=== PATIENT | female | born 1950 | race Caucasian/White ===

== ENCOUNTER 2019-03-16 17:30 | Outpatient (REF) | payer MEDICARE, BC, SELFPAY ==
--- NOTE | 2019-03-16 16:25 | TONG_PTH ---
PATIENT: BO GANDARA LOC: [facility] U#:[id number] AGE/SX: 68/F ROOM: RE03/16/[address]: Rogers Marrufo DO : 1950 BED: DIS: 03/16/2019 SPEC #: [id number] RECD: 03/16/19 18:25 STATUS: ISABEL REQ #: [id number] NANCY: 03/16/19 16:[address]: Rogers Marrufo DEPT: Surgical Specimen RECD BY: Palmira Bernstein ENTERED: 03/16/19 18:26 SP TYPE: JOHNNY BURNETT DR: Kaitlin Hurtado Tissues: 1 - TONGUE BIOPSY Procedures: GROSS AND MICRO LEVEL 4 SPECIAL STAIN 1 Comments: [id number] (STAT READ*)
--- NOTE | 2019-03-16 16:25 | PAPNONF_PTH ---
PATIENT: BO GANDARA LOC: [facility] U#:[id number] AGE/SX: 68/F ROOM: RE03/16/[address]: Rogers Marrufo DO : 1950 BED: DIS: 03/16/2019 SPEC #: [id number] RECD: 03/16/19 18:36 STATUS: ISABEL REQ #: [id number] NANCY: 03/16/19 16:[address]: Rogers Marrufo DEPT: [facility] Cytology RECD BY: Palmira Bernstein ENTERED: 03/16/19 18:38 SP TYPE: NANO BURNETT DR: Kaitlin Hurtado Tissues: 1 - BODY FLUID CYTO-FINE NEEDLE ASPIRATE-[facility] Procedures: BODY FLUID CYTO-FINE NEEDLE ASPIRATE-[facility] Comments: [id number] (*STAT READ*)
== END 2019-03-16 17:50 ==
LOC: LBN 17:30
PROVIDERS: PCP Nurse Practitioner Family; Visit Provider Otolaryngology Otolaryngology/Facial Plastic Surgery
DX: K14.0 Glossitis (principal); R22.1 Localized swelling, mass and lump, neck; R59.0 Localized enlarged lymph nodes; D37.02 Neoplasm of uncertain behavior of tongue
CPT/HCPCS: 88305; 88104; 88312

== ENCOUNTER 2019-05-28 09:15 | Outpatient (CLI) | payer MEDICARE, BC, SELFPAY ==
[2019-05-28 09:58] LABS: Abs Immature Grans 0.31 k/cumm (0.0-0.09); Absolute Lymphocyte Count 1.42 k/cumm (1.2-3.4); Absolute Monocyte Count 2.42 k/cumm (0.11-0.7); Basophils % 0.3; Eosinophils % 3.2; HCT 36.7 % (36.0-46.0); HGB 11.9 g/dL (12.0-15.5); Immature Grans % 0.9; Mean Corp. HGB Concentration 32.4 g/dL (32.0-36.0); Mean Corpuscular Hemoglobin 29.5 pg (27.0-33.0); Mean Corpuscular Volume 91.1 fL (80-95); Mean Platelet Volume 8.9 fL (8.0-11.0); Monocytes % 6.8; Neutrophils % 84.8; Platelet Count 605 x1000/uL (130-400); RBC 4.03 m/cumm (4.00-5.20); RBC Distribution Width 13.8 % (11.7-14.6)
[2019-05-28 10:26] LABS: Absolute Basophil Count 0.11 k/cumm (0.0-0.2); Absolute Eosinophil Count 1.14 k/cumm (0.0-0.7); Absolute Neutrophil Count 30.13 k/cumm (1.2-6.7); White Blood Cell Count 35.53 k/cumm (4.4-10.8)
[2019-05-28 10:27] LABS: Diff Comment Agrees w/ Instrument; RBC Morphology Normal
[2019-05-28 10:55] LABS: ALT 13 U/L (14-59); AST 13 U/L (15-37); Albumin 2.6 g/dL (3.4-5.0); Alkaline Phosphatase 112 U/L (46-116); Anion Gap 7.6 mmol/L (3-11); BUN 17 mg/dL (7-18); Bilirubin, Total 0.3 mg/dL (0.2-1.0); CO2 32.4 mmol/L (21.0-32.0); CREATININE 0.63 mg/dL (0.55-1.02); Calcium 9.8 mg/dL (8.5-10.1); Chloride 98 mmol/L (98-107); FREE T4 1.18 ng/dL (0.76-1.46); Glucose 98 mg/dL (74-106); Potassium 4.5 mmol/L (3.5-5.1); Sodium 138 mmol/L (136-145); TSH 1.84 uIU/mL (0.36-3.74); Total Protein 6.4 g/dL (6.4-8.2)
== END 2019-05-28 09:35 ==
PROVIDERS: PCP Nurse Practitioner Family; Visit Provider Internal Medicine Hematology & Oncology
DX: C06.9 Malignant neoplasm of mouth, unspecified (principal); Z79.899 Other long term (current) drug therapy
CPT/HCPCS: 36415; 80053; 84439; 84443; 85025

== ENCOUNTER 2019-06-11 15:11 | Emergency (ER) | payer MEDICARE, BC, SELFPAY ==
[2019-06-11] VITALS (72 sets, daily range): BP systolic 110–149; BP diastolic 42–95; PULSE 88–125; RESP 2–26; TEMP 36.5–36.7; O2SAT 87–97
--- NOTE | 2019-06-11 15:19 | ED.GENADUL_ITS ---
Discharge Plan Disposition Patient Disposition: [facility] Condition: Poor Discharge Details Chief Complaint: Chest Pain Clinical Impression: Metastatic cancer, Hypoxia Primary Care Provider: Kaitlin Hurtado ED Provider: Maddy Morrow Home Meds and New Rx's Prescriptions: No Action fluconazole 100 mg Tablet 100 mg PO DAILY RF: 0 polyethylene glycol 3350 [Miralax] 17 gram Powder In Packet 17 g PO DAILY RF: 0 ibuprofen 200 mg Capsule 400 mg PO Q6H PRNRF: 0 lisinopril 20 mg Tablet 20 mg PO HS RF: 0 amlodipine 2.5 mg Tablet 2.5 mg PO HS RF: 0 ondansetron 8 mg Tablet,Disintegrating 8 mg translingual Q8H PRNRF: 0 calcium carbonate 200 mg calcium (500 mg) Tablet,Chewable 200 mg PO DAILY RF: 0 hydrochlorothiazide 12.5 mg Capsule 12.5 mg PO DAILY RF: 0 pravastatin 20 mg Tablet 20 mg PO HS RF: 0 gabapentin 100 mg Capsule 200 mg PO TID RF: 0 albuterol sulfate 90 mcg/actuation Hfa Aerosol Inhaler 2 puff INHALATION Q6H PRN PRNRF: 0 morphine 15 mg Tablet 15 mg PO Q4H PRNRF: 0 acetaminophen 500 mg Capsule 1,000 mg PO Q6H RF: 0 senna 8.6 mg Capsule 8.6 mg PO DAILY RF: 0 Symbicort 160-4.5 mcg/actuation Hfa Aerosol Inhaler 2 puff INHALATION BID RF: 0 Prolia 60 mg/mL Syringe 60 mg SUBCUT RF: 0 Discharge Data Discharge Date/Time-TO BE ENTERED AT DEPARTURE: 06/11/19 22:40 Medical Decision Making Patient is a pleasant 68-year-old female presenting today with chief complaint of shortness of breath and cough. Patient was being seen at the cancer center for rehydration intravenously. It was noted that the patient was hypoxic with oxygen reported in the 60s. Patient reports that for the past 3 days she has had pleuritic chest discomfort, pain only with deep inspiration and cough. Also endorses cough with sputum production. Denies any fevers or chills. Denies any pain in her lower extremities. Has not noted any lower extremity swelling. No recent travel. No history of clots. Patient's past medical history significant for bronchiectasis, chronic lung disease, hyperlipidemia, hypertension, squamous cell carcinoma of the tongue. Patient underwent a VATS procedure in April 2019 at which time left lower lobe SCC was confirmed. Recently, patient has lost approximately 6 pounds per recent evaluation with oncology. She has been treated for oral candidiasis. Has had more fatigue. Has a notable mass in the right side of her neck. EKG was reviewed by Dr. Victoria. Patient is in sinus tachycardia with a rate of 107. No acute ischemic changes noted. On exam, patient does not appear in respiratory distress. There is no evidence of work of breathing. She is speaking in full sentences. She is currently on 6 L nasal cannula. Patient has notable crackles in the left lower lobe, di minished sounds in the right lower lobe and wheezing in the bilateral upper aspect of the lung on auscultation. No lower extremity edema. No calf tenderness. Abdomen is benign. Patient is notably tachycardic but normal sinus rhythm. Patient will be given nebulizers to help shortness of breath and wheezing. Concern for possible pulmonary embolism and will move forward with CTA per PE protocol pending kidney function. Also considered a cardiac source note given the findings on acquisition of the lungs, find this less likely. EKG also reassuring. Also consider possible pneumonia with increased sputum production and cough. Also considered other cardiac, respiratory or oncologic symptoms. Labs reviewed, patient is white count of 67. This may be associated with her immunotherapy she is undergoing with oncology. Platelet count is 592, this is baseline for the patient. Absolute neutrophil count of 59. Kidney function is maintained. Troponin is less than 0.05. BNP is 547. FINDINGS: Pulmonary arteries: No pulmonary embolism. Aorta: The aorta is normal. Thyroid: Heterogeneous appearance of the collapse portion of left upper lobe. Lungs: Large 4.2 x 3.8 cm hypodense lesion in the left upper lobe with mass effect on the adjacent airways and resultant atelectasis. There are numerous additional pulmonary masses, and regions of ground glass opacity and centrilobular nodules throughout both lobes. Prominent interlobular septa. Pleural space: Small left pleural effusion. Heart: Small pericardial effusion. Enlarged heart Lymph nodes: Numerous enlarged cystic appearing mediastinal and left greater than right hilar lymph nodes. Bones/joints: Unremarkable. No acute fracture. Soft tissues: Unremarkable. Other findings: No acute abnormality in the partially visualized upper abdomen. IMPRESSION: 1. No pulmonary embolism. 2. Numerous hypodense pulmonary nodules/masses consistent with malignancy. 3. Large hypodense lesion in the left upper lobe with mass effect on the adjac ent airways and partial collapse of the left upper lobe. Heterogeneous appearance of the collapsed lung could represent additional pulmonary nodules/masses versus superimposed aspiration or infection. Recommend clinical correlation. 4. Additional scattered areas of ground-glass opacity, and centrilobular nodules may represent infection, edema, or additional sequela of malignancy Discussed these findings with the patient and her significant other. They are quite surprised by these findings. They report that they had [place] 2 [place] ago [place] [facility] Again, the patient had a VATS procedure last fall leading to the diagnosis of patient's underlying cancer. They report that on recent chest x-ray, there is not any new mass per the report. I will attempt to find these results. I did discuss end-of-life care with the patient and she would like to continue to be full code and seek all possible treatment measures. Will consult with oncology at [facility] As there is a concern for underlying pneumonia, patient will be given 1 g of ceftriaxone and 100 mg doxycycline. Is on her second liter of fluids. Consulted with Dr. Saucedo, hospitalist prior to transfer to the facility. She agrees to admission, patient will be transferred to stepdown unit. Patient transferred [place] [facility] [place] HPI General Mode of arrival: EMS . Date/Time Provider Initiated Documentation: 06/11/19 15:19 . Limitations to Documentation: no limitations . Information obtained by: patient and RN notes reviewed . History of Present Illness 68 year old F presents to the emergency department with the chief complaint of Shortness of breath, cough, pleuritic chest pain, described as moderate, Quality is described as aching, and is localized to the chest. Patient reports no radiation. Patient started experiencing this day(s) (3) and it has been constant (Pain only with deep inspiration and cough). Patient notes chest pain, cough and shortness of breath; denies diaphoresis, fever/chills, headaches, loss of appetite, nausea/vomiting, rash, syncope and weakness. Patient did receive the following treatments prior to arrival, Aspirin Related Data Home Medications Medication Instructions Recorded Confirmed acetaminophen 1,000 mg PO Q6H 06/11/19 06/11/19 albuterol sulfate 2 puff INHALATION Q6H PRN PRN 06/11/19 06/11/19 amlodipine 2.5 mg PO HS 06/11/19 06/11/19 budesonide-formoterol [Symbicort] 2 puff INHALATION BID 06/11/19 06/11/19 calcium carbonate 200 mg PO DAILY 06/11/19 06/11/19 denosumab [Prolia] 60 mg SUBCUT 06/11/19 fluconazole 100 mg PO DAILY 06/11/19 06/11/19 gabapentin 200 mg PO TID 06/11/19 06/11/19 hydrochlorothiazide 12.5 mg PO DAILY 06/11/19 06/11/19 ibuprofen 400 mg PO Q6H PRN 06/11/19 06/11/19 lisinopril 20 mg PO HS 06/11/19 06/11/19 morphine 15 mg PO Q4H PRN 06/11/19 06/11/19 ondansetron 8 mg TRANSLINGUAL Q8H PRN 06/11/19 06/11/19 polyethylene glycol 3350 [Miralax] 17 g PO DAILY 06/11/19 06/11/19 pravastatin 20 mg PO HS 06/11/19 06/11/19 senna 8.6 mg PO DAILY 06/11/19 06/11/19 Allergies Allergy/AdvReac Type Severity Reaction Status Date / Time sulfamethoxazole AdvReac Nausea Unverified 06/11/19 15:39 [From Bactrim] trimethoprim [From Bactrim] AdvReac Nausea Unverified 06/11/19 15:39 Review of Systems Constitutional Constitutional: Reports as per HPI, Denies chills, Denies fever(s), Denies headache(s), Denies lethargy and Denies poor appetite Eyes Eyes: Denies change in vision ENT Ears, Nose, Mouth, and Throat: Denies dizziness and Denies headache(s) Cardiovascular Cardiovascular: Reports as per HPI, Reports chest pain (With cough and deep inspiration), Denies chest pain at rest, Denies lightheadedness, Denies radiating jaw, neck or arm pain, Denies palpitations, Reports dyspnea and Reports dyspnea on exertion Respiratory Respiratory: Reports as per HPI, Reports chest congestion, Reports cough, Denies hemoptysis, Reports pain on inspiration, Reports pain with cough, Reports dyspnea, Reports dyspnea on exertion and Denies wheezing Gastrointestinal Gastrointestinal: Reports as per HPI, Denies abdominal pain, Denies diarrhea, Denies nausea and Denies vomiting Musculoskeletal Musculoskeletal: Reports as per HPI and Denies back pain Integumentary/Breasts Skin/Breast: Reports as per HPI and Denies rash Neurologic Neurologic: Reports as per HPI, Denies dizziness and Denies headache(s) Endocrine Endocrine: Denies palpitations Allergic/Immunologic Allergic/Immunologic: Denies wheezing [facility] Social History Smoking/Tobacco Use Status: Never Alcohol Intake: never Drug use: Never Substance use type: does not use Do you feel safe at home: Yes Do you feel safe in your relationship?: Yes Exam Const General: cooperative, healthy appearing, comfortable, no acute distress and well developed Nutritional Appearance: average body habitus and well nourished Orientation: alert, awake and oriented x3 HENMT Head: normal to inspection Ears: hearing grossly normal bilaterally Mouth: moist mucous membranes Chest Chest: normal inspection of the chest, normal palpation of entire chest wall and no crepitus Resp Effort & Inspection: normal respiratory effort, able to speak in complete sentences and no respiratory distress Auscultation: clear to auscultation bilaterally, no rales, no rhonchi and no wheezes Cardio Rate: regular rate Rhythm: regular rhythm Heart Sounds: S1 normal and S2 normal GI Inspection: normal to inspection, no edema and non-distended Palpation: soft, no hepatosplenomegaly, not firm, no guarding, not rigid and nontender Auscultation: normal bowel sounds Back/Spine/Pelvis Back: no CVA tenderness Thoracic/Lumbar Spine: thoracic and lumbar spine normal to inspection Skin General skin exam: no rashes or lesions noted Trauma: no lacerations or abrasions Neuro General: alert, awake and oriented x3 Cognition: normal cognition Speech: speech normal Gait: normal gait Extrem General: normal to inspection, normal capillary refill, no pedal edema, no calf tenderness and normal gait Psych Appearance: grossly normal and well kempt Mental Status: mental status grossly normal Speech and Movement: speech and movement normal
[2019-06-11] MEDS: Albuterol/Ipratropium 3 ML UPD VIAL ×3 (15:30→15:40)
[2019-06-11 15:42] LABS: Abs Immature Grans 1.81 k/cumm (0.0-0.09); Absolute Eosinophil Count 1.49 k/cumm (0.0-0.7); Absolute Monocyte Count 2.78 k/cumm (0.11-0.7); Basophils % 0.9; Eosinophils % 2.2; HCT 36.1 % (36.0-46.0); HGB 11.6 g/dL (12.0-15.5); Immature Grans % 2.7 %; Lymphocytes % 2.1; Mean Corp. HGB Concentration 32.1 g/dL (32.0-36.0); Mean Corpuscular Hemoglobin 28.8 pg (27.0-33.0); Mean Corpuscular Volume 89.6 fL (80-95); Mean Platelet Volume 9.3 fL (8.0-11.0); Monocytes % 4.1; Platelet Count 592 x1000/uL (130-400); RBC 4.03 m/cumm (4.00-5.20); RBC Distribution Width 14.6 % (11.7-14.6)
[2019-06-11] MEDS: Normal Saline 1,000 ML 125 ML IV (15:43)
[2019-06-11 15:51] LABS: Absolute Basophil Count 0.61 k/cumm (0.0-0.2); Absolute Lymphocyte Count 1.43 k/cumm (1.2-3.4); Absolute Neutrophil Count 59.74 k/cumm (1.2-6.7); White Blood Cell Count 67.89 k/cumm (4.4-10.8)
[2019-06-11 16:07] LABS: ALT 21 U/L (14-59); AST 28 U/L (15-37); Albumin 2.1 g/dL (3.4-5.0); Alkaline Phosphatase 159 U/L (46-116); Anion Gap 4.5 mmol/L (3-11); BUN 21 mg/dL (7-18); Bilirubin, Total 0.3 mg/dL (0.2-1.0); CO2 33.5 mmol/L (21.0-32.0); CREATININE 0.65 mg/dL (0.55-1.02); Calcium 11.2 mg/dL (8.5-10.1); Chloride 99 mmol/L (98-107); Glucose 123 mg/dL (74-106); Magnesium 1.8 mg/dL (1.8-2.4); NT-proBNP 547 pg/mL (<300); Sodium 137 mmol/L (136-145); Total Protein 6.5 g/dL (6.4-8.2)
[2019-06-11 16:08] LABS: Troponin I < 0.05 ng/Ml (<0.06)
[2019-06-11 16:10] LABS: INR 1.1 (0.9-1.1); PTT Activated 24.6 sec (21.0-31.4); Prothrombin Time 11.4 sec (9.3-11.0)
[2019-06-11 16:19] LABS: Diff Comment Diff Reviewed; RBC Morphology Normal
[2019-06-11] MEDS: Omnipaque 350 MG/ML 100 ML BTL IJ (16:24)
--- NOTE | 2019-06-11 16:34 | DI.CT_ITS ---
EXAM: CT CHEST PE CTA CLINICAL HISTORY: cancer patient, SOB, tachycardic, hypoxic TECHNIQUE: CT examination the chest was performed utilizing CTA protocol with intravenous infusion o f 100 cc of Omnipaque 350. Axial CT angiography was performed with multi-slice acquisition and multi-planar and/or 3D reconstruc tions. COMPARISON: CT SOFT TISSUE NECK W/CONTRAST from 04/08/2019 CT SOFT TISSUE NECK W/CONTRAST from 04/08/2019 FINDINGS: Images obtained through the upper abdomen show unremarkable appearance of visualized portions of li angely, spleen, left kidney and left adrenal. No evidence of pulmonary embolic disease. No abnormality of thoracic aorta. There is a moderate-sized left pleural effusion and there is dominant left upper lobe mass and/or con solidation measuring at least 6 cm in diameter. There are multiple small spiculated masses throughou t both lungs, the largest measuring up to 5 cm in diameter in left lower lobe. Multiple areas of nod ularity and consolidation seen bilaterally. Numerous mediastinal lymph nodes noted, the largest sub carinal region measuring 3-4 cm in diameter. Findings are highly suggestive of lung carcinoma with m ultiple intrapulmonary and mediastinal metastases. Recent cervical CT reportedly showed necrotic, pr esumably metastatic lymph nodes as well. No evidence of pulmonary embolic disease. IMPRESSION: No evidence of pulmonary embolic disease. Findings of large left upper lobe lung mass/consolidation with multiple intrapulmonary and mediastinal metastatic lesions.
[2019-06-11] MEDS: Normal Saline - Diluent 50 ML VIAL IV (16:42)
--- NOTE | 2019-06-11 17:06 | DI.VRAD_ITS ---
PROCEDURE INFORMATION: Exam: CT Angiography Chest With Contrast Exam date and time: 06/11/2019 3:22 PM Age: 68 years old Clinical indication: Other: Cancer patinet, SOB, tachycardic, hypoxic TECHNIQUE: Imaging protocol: Computed tomographic angiography of the chest with intravenous contrast. 3D rendering: MIP and/or 3D reconstructed images were created by the technologist. Radiation optimization: All CT scans at this facility use at least one of these dose optimization techniques: automated exposure control; mA and/or kV adjustment per patient size (includes targeted exams where dose is matched to clinical indication); or iterative reconstruction. Contrast material: OMNIPAQUE 350; Contrast volume: 57 ml; Contrast route: IV; COMPARISON: No relevant prior studies available. FINDINGS: Pulmonary arteries: No pulmonary embolism. Aorta: The aorta is normal. Thyroid: Heterogeneous appearance of the collapse portion of left upper lobe. Lungs: Large 4.2 x 3.8 cm hypodense lesion in the left upper lobe with mass effect on the adjacent airways and resultant atelectasis. There are numerous additional pulmonary masses, and regions of ground glass opacity and centrilobular nodules throughout both lobes. Prominent interlobular septa. Pleural space: Small left pleural effusion. Heart: Small pericardial effusion. Enlarged heart Lymph nodes: Numerous enlarged cystic appearing mediastinal and left greater than right hilar lymph nodes. Bones/joints: Unremarkable. No acute fracture. Soft tissues: Unremarkable. Other findings: No acute abnormality in the partially visualized upper abdomen. IMPRESSION: 1. No pulmonary embolism. 2. Numerous hypodense pulmonary nodules/masses consistent with malignancy. 3. Large hypodense lesion in the left upper lobe with mass effect on the adjacent airways and partial collapse of the left upper lobe. Heterogeneous appearance of the collapsed lung could represent additional pulmonary nodules/masses versus superimposed aspiration or infection. Recommend clinical correlation. 4. Additional scattered areas of ground-glass opacity, and centrilobular nodules may represent infection, edema, or additional sequela of malignancy Dictated and Authenticated by: Rogers Fairbanks MD. Ordering:RANDY Castañeda MD
[2019-06-11] MEDS: methylPREDNISolone SUCC 125 MG VIAL IVP (18:08)
[2019-06-11] MEDS: cefTRIAXone 1 GM/50 ML BAG IVPB (18:10)
[2019-06-11] MEDS: DOXYCYCLINE 100 MG in Normal Saline 100 ML IVPB (18:13)
[2019-06-11] MEDS: Normal Saline 1,000 ML 1000 ML IV (18:18)
[2019-06-11 18:39] LABS: Troponin I < 0.05 ng/Ml (<0.06)
== END 2019-06-11 22:40 | disposition short-term general hospital (02) ==
PROVIDERS: Emergency Provider Physician Assistant; PCP Nurse Practitioner Family
DX: R09.02 Hypoxemia (principal); C34.11 Malignant neoplasm of upper lobe, right bronchus or lung; Z85.810 Personal history of malignant neoplasm of tongue; I10 Essential (primary) hypertension
CPT/HCPCS: 71275; 80053; 93005; 94640; 96361; 96365; 96368; 96375; 99285; 83735; 83880; 84484; 85025; 85610; 85730; 93010; J0696; J2930; J3490; J7620